=== PATIENT | female | born 1970 | race Caucasian/White ===

== ENCOUNTER → 2017-03-15 | Outpatient (CLI) | payer OTHER ==
--- NOTE | 2017-03-16 09:29 | RAD ---
DATE: 03/15/2017 EXAM: DIGITAL SCREEN BILAT W/CAD HISTORY: Routine screening COMPARISON: Baseline study This study was interpreted with the benefit of Computerized Aided Detection (CAD). The breast parenchyma is primarily fatty replaced. Breast parenchyma level density A. FINDINGS: There is only a small amount of residual fibroglandular tissue in the breasts in a patchy pattern. A small density seen laterally in the right breast at approximately the 9:00 location probably represents a patch of residual normal fibroglandular tissue. There is a more prominent density resembling a cluster of small nodules at the 4:00 location in the left breast. No other unusual breast densities are seen. No suspicious microcalcifications are evident. IMPRESSION: Small focal breast opacities at the 4:00 location in the left breast and 9:00 location in the right breast as described above. Sonographic evaluation is suggested. BI-RADS CATEGORY: 0 INCOMPLETE: NEEDS ADDITIONAL IMAGING EVALUATION AND/OR PRIOR MAMMOGRAMS FOR COMPARISON. RECOMMENDED FOLLOW-UP: ADD ADDITIONAL IMAGING PQRS compliance statement: Patient information was entered into a reminder system with a target due date for the next mammogram. Mammography is a sensitive method for finding small breast cancers, but it does not detect them all and is not a substitute for careful clinical examination. A negative mammogram does not negate a clinically suspicious finding and should not result in delay in biopsying a clinically suspicious abnormality. "Our facility is accredited by the [employer] Mammography Program."
== END | disposition home or self-care (01) ==
LOC: MAMMO 14:53
PROVIDERS: ATTEND Family Medicine
DX: Z12.31 Encounter for screening mammogram for malignant neoplasm of breast (principal)
CPT/HCPCS: G0202; 77067

== ENCOUNTER → 2017-03-24 | Outpatient (CLI) | payer OTHER ==
--- NOTE | 2017-03-24 11:20 | RAD ---
Bilateral breast ultrasound, 03/24/2017: History: Suspicious screening mammograms A targeted ultrasound exam of both breasts was performed centered at the 9:00 location in the right breast and at the 4:00 location of the left breast. Small asymmetric densities were seen in these regions on the recent mammograms. Both breasts demonstrate a heterogeneous echo pattern. There is an irregular echogenic focus located approximately 3 cm from the nipple at the 9:00 location in the right breast. Correlation with the mammographic finding suggests that this is probably a patch of dense fibroglandular tissue. At the 4:00 location in the left breast approximately 4 cm from the nipple there is a slightly larger but otherwise similar echogenic focus. This also probably represents dense fibroglandular tissue. This would be an unusual appearance for a breast malignancy, although that possibility cannot be excluded. IMPRESSION: Probably benign findings as described above. Mammographic surveillance beginning in 6 months is suggested to establish stability. BI-RADS 3-probably benign findings.
== END | disposition home or self-care (01) ==
LOC: MAMMO 09:34
PROVIDERS: ATTEND Family Medicine
DX: R92.8 Other abnormal and inconclusive findings on diagnostic imaging of breast (principal)
CPT/HCPCS: 76641